=== PATIENT | female | born 1945 | race Caucasian/White ===

== ENCOUNTER → 2023-12-16 13:51 | Outpatient (REF) | payer MEDICARE, SELFPAY ==
[2023-12-16 10:13] LABS: % Basophils 1.6 % (0-2); % Eosinophils 1.9 % (0-6); % Immature Granulocytes 0.6 % (0-0.5); % Lymphocytes 38.6 % (20.5-51.1); % Monocytes 7.7 % (1.7-9.3); % Neutrophils 49.6 % (42.2-75.2); Absolute Basophils 0.1 10^3/uL (0-0.2); Absolute Eosinophils 0.1 10^3/uL (0-0.7); Absolute Lymphocytes 1.2 10^3/uL (1.2-3.4); Absolute Monocytes 0.2 10^3/uL (0.1-0.6); Absolute Neutrophils 1.5 10^3/uL (1.4-6.5); Hematocrit 34.2 % (37.0-47.0); Hemoglobin 11.9 g/dL (12.0-16.0); Mean Corp Hgb Conc. 34.8 g/dL (33.0-37.0); Mean Corpuscular Hgb 33.2 pg (27.0-31.0); Mean Corpuscular Volume 95.5 fL (81.0-99.0); Mean Platelet Volume 9.5 fL (7.4-10.4); Nucleated Red Blood Cells % 0 %; Platelet Count 287 10^3/uL (130-400); Red Blood Cell Count 3.58 10^6/uL (4.20-5.40); Red Cell Dist. Width 13.3 % (11.5-14.5); White Blood Cell Count 3.1 10^3/uL (4.8-10.8)
== END ==
LOC: OIDL 13:51
PROVIDERS: ATTENDING PHYSICIAN Internal Medicine Hematology & Oncology
DX: C50.412 Malignant neoplasm of upper-outer quadrant of left female breast (principal)
CPT/HCPCS: 85025

== ENCOUNTER 2023-12-16 14:25 | Emergency (ER) | payer MEDICARE, SELFPAY ==
[2023-12-16] VITALS (11 sets, daily range): BP systolic 158–240; BP diastolic 68–99; BMI 30.3
[2023-12-16 15:08] LABS: % Basophils 0.9 % (0-2); % Eosinophils 0.9 % (0-6); % Immature Granulocytes 0.3 % (0-0.5); % Lymphocytes 16.9 % (20.5-51.1); % Monocytes 3.7 % (1.7-9.3); % Neutrophils 77.3 % (42.2-75.2); Absolute Lymphocytes 0.6 10^3/uL (1.2-3.4); Absolute Monocytes 0.1 10^3/uL (0.1-0.6); Absolute Neutrophils 2.5 10^3/uL (1.4-6.5); Hematocrit 36.3 % (37.0-47.0); Hemoglobin 12.4 g/dL (12.0-16.0); Mean Corp Hgb Conc. 34.2 g/dL (33.0-37.0); Mean Corpuscular Hgb 33.4 pg (27.0-31.0); Mean Corpuscular Volume 97.8 fL (81.0-99.0); Mean Platelet Volume 9.5 fL (7.4-10.4); Nucleated Red Blood Cells % 0 %; Platelet Count 236 10^3/uL (130-400); Red Blood Cell Count 3.71 10^6/uL (4.20-5.40); Red Cell Dist. Width 13.3 % (11.5-14.5); White Blood Cell Count 3.3 10^3/uL (4.8-10.8)
[2023-12-16 15:28] LABS: ALT (SGPT) 15 U/L (0-35); AST (SGOT) 26 U/L (14-36); Albumin 3.8 g/dl (3.5-5.0); Alkaline Phosphatase 90 U/L (38-126); Blood Urea Nitrogen 17 mg/dl (7-17); Calcium 9.4 mg/dl (8.4-10.2); Carbon Dioxide 26 mmol/L (22-30); Chloride 103 mmol/L (98-107); Glucose 100 mg/dl (70-99); Potassium 4.3 mmol/L (3.5-5.1); Sodium 134 mmol/L (135-145); Total Bilirubin 0.6 mg/dl (0.2-1.3); Total Protein 6.5 g/dl (6.3-8.2); eGFR > 60.00
--- NOTE | 2023-12-16 17:51 | ED.GENMED ---
History of Present Illness
General
Chief Complaint: Blood Pressure Problem
Source: patient
Exam Limitations: none
Time Seen by Provider: 12/16/23 16:57
Nursing documentation reviewed up to this point in time: agreed with
Travel History
Have you had any contact with someone who has COVID-19?: No
Do you have any symptoms of coronavirus? Fever > 100 degrees, chills, cough, shortness of breath, sore throat, loss of taste or smell, muscle aches, or headache?: No
History of Present Illness
History of Present Illness:
78-year-old female presents to the ER for evaluation. Patient is currently getting treated for lymphoma and was getting a treatment of immune therapy when they found that her blood pressure was high and she had a headache. She has had off-and-on
headaches for the past 1 week. She reports pain is in the left side of her head and left face area. She denies any visual disturbances. Denies any numbness Paramjit weakness in upper or lower extremities. Her blood pressure was very high prior to
arrival while getting her immune therapy which is why they sent her here to the ER. She denies any nausea vomiting blurred vision chest pain shortness of breath. She was given Tylenol at that time.
She is on lisinopril and HCTZ but only takes HCTZ when her legs swell (PRN) she only took lisinopril today.
Review of Systems
Review of Systems
Allergies reviewed?: Yes
All Other Systems: ROS reviewed and negative except as documented in HPI and ROS
Constitutional: Reports no symptoms; Denies fever, fatigue or chills
EENT: Reports no symptoms
Respiratory: Reports no symptoms
Cardiac: Reports no symptoms
ABD/GI: Reports no symptoms; Denies nausea or vomiting
Musculoskeletal: Reports no symptoms
Skin: Reports no symptoms
Neurological: Reports headache
Hematologic/Lymphatic: Reports no symptoms
Psychiatric: Reports no symptoms
Phy Exam
General Physical Exam
General Presentation: no apparent distress
General age: appears stated age
General Skin: warm and dry
General Habitus: elderly
General Mental: alert
General Hydration: appears well hydrated
ENT Exam
ENT Exam: EOMI and other (Left-sided neck mass+ no difficulty swallowing)
Eye Exam
Eye Exam: PERRL and EOMI
Eye Exam General: PERRL: bilateral and EOM intact: bilateral
Pupil Exam: Bilateral: round and reactive
Cardiovascular Exam
Cardiovascular Exam: regular rate/rhythm, no murmur and normal peripheral pulses
Pulmonary Exam
Pulmonary Exam: lungs clear and no respiratory distress
Neurological Exam
Neurological Exam: alert and oriented x3
Musculoskeletal Exam
Musculoskeletal Exam: full ROM and other (Patient with left-sided neck swelling hard palpable mass to left lateral neck left trapezius area; nontender to left temporal artery)
Skin Exam
Skin Exam: normal color and warm/dry
Psychiatric Exam
Psychiatric Exam: normal mood/affect
Course
Orders/Labs/Results
Orders:
Orders
12/16/23 14:43
Electrocardiogram (*1) Urgent
Reason for Study: Hypertension, Benign
EKG- Treatment ONCE
12/16/23 14:56
Complete Blood Count/With Diff Urgent
Comprehensive Metabolic Panel Urgent
12/16/23 18:02
CT Head W/o Iv Contrast Urgent
Comment:
Reason For Exam: headache
12/16/23 19:10
HydrALAZINE [Apresoline] 10 mg IV NOW STA
12/16/23 20:36
Acetaminophen [Tylenol] 650 mg .ROUTE .STK-MED ONE
12/16/23 20:39
Acetaminophen [Tylenol] 650 mg PO NOW STA
12/16/23 21:10
Amlodipine [Norvasc] 5 mg PO NOW STA
12/16/23 21:32
Ketorolac [Toradol] 15 mg IV NOW STA
Abnormal Lab Results
12/16/23
14:56
WBC 3.3 L 10^3/uL
(4.8-10.8)
RBC 3.71 L 10^6/uL
(4.20-5.40)
Hct 36.3 L %
(37.0-47.0)
MCH 33.4 H pg
(27.0-31.0)
Absolute Lymphs (auto) 0.6 L 10^3/uL
(1.2-3.4)
Neutrophils % 77.3 H %
(42.2-75.2)
Lymphocytes % 16.9 L %
(20.5-51.1)
Sodium 134 L mmol/L
(135-145)
Glucose 100 H mg/dl
(70-99)
12/16/23 14:56
12/16/23 14:56
Vital Signs
Initial and Last Documented VS:
Initial Vital Signs
Temp Pulse Resp BP Pulse Ox
98.0 F 76 16 229/99 98
12/16/23 14:34 12/16/23 14:34 12/16/23 14:34 12/16/23 14:34 12/16/23 14:34
Last Documented Vital Signs
Temp Pulse Resp BP Pulse Ox
98.0 F 79 18 183/76 100
12/16/23 14:34 12/16/23 21:20 12/16/23 20:54 12/16/23 21:20 12/16/23 20:54
Commutator Repairer consulted with Physician
Commutator Repairer consulted with physician?: Yes
Name of Physician Consulted: madeline
MDM/Problems Addressed
Differential Diagnosis Includes:
Not limited to headache intracranial hemorrhage
MDM/Problems Addressed:
Patient is a 78-year-old female who presented to the ER complaining of headache and blood pressure. Patient developed a headache while she was getting her immunotherapy for lymphoma at [facility]. Her blood pressure apparently was high
and she was sent here to the ER she presents awake alert no acute distress. She has had a headache off and on for the past several days. She denies any associated visual disturbance denies any upper or lower extremity numbness Tingling / weakness.
On exam she has no focal deficits. She is nontender over her temporal region.
she is on lisinopril daily which she did take but HCTZ is as needed for leg swelling and she did not take this. She presents awake alert no acute distress with a normal neurologic exam. CT negative. Patient was given hydralazine for blood
pressure, heart rate in the 70s.
2056: Blood pressure 199/68 heart rate 80s. Patient reports headache is coming back she was given Tylenol. Case discussed ED physician will have to plan to discharge patient on Norvasc in addition to her lisinopril. She only takes HCTZ very
sparingly and will have her follow-up with her family doctor for further instructions on high HCTZ use. Will give first dose of Norvasc here.
2132 Will give a dose of low-dose Toradol for headache
2324:Pt feels better wants to go home. appears comfortable BP much better .as discussed we will send amlodipine to patient's pharmacy. Discussed close outpatient follow-up with family doctor/oncology for further evaluation of symptoms.
*Radiology
Radiology exam reviewed: radiology read reviewed
*Pulse Oximetry
Patient hypoxic: no
*Critical Care Note
Total Time (30-74mins, 75-104mins- exclusive of procedures): Not Applicable
ED Attending Note
-
Portions of this chart may have been created with voice recognition software.� Occasional wrong word or��sound alike� substitutions may have occurred due to the inherent limitations of voice recognition software.
Discharge Plan
Departure
Patient Disposition: Home (Routine Discharge)
Date of Disposition: 12/16/23
Time of Disposition: 23:24
Patient with high blood pressure during this ER visit?: Yes
Condition: Fair
Covid-19: Not Applicable
Discharge Problem:
Headache, Elevated blood pressure reading
Instructions: High Blood Pressure (DC), Headache, Adult ED, BLOOD PRESSURE
Prescriptions:
New
amlodipine 5 mg tablet
5 mg PO DAILY Qty: 30 0RF
No Action
lisinopril 20 MG tablet
20 mg PO DAILY
Patient Comments:
in am
hydrochlorothiazide 25 MG tablet
25 mg PO PRN PRN (Reason: ankle swelling)
Patient Comments:
in am
letrozole 2.5 mg Tablet
2.5 mg PO DAILY
Centrum Silver Tablet
1 tab PO DAILY
biotin 2,500 mcg Capsule
2,500 mcg PO DAILY
Ibrance 125 mg Capsule
125 mg PO QPM
prednisolone sodium phosphate [prednisolone sodium phosphate] 15 mg/5 mL (3 mg/mL) solution
10 ml PO DAILY 3 Days Qty: 30 0RF
Rx Instructions:
Take Prelone starting tomorrow, once daily x 3 days
ondansetron [ondansetron] 4 mg tablet,disintegrating
4 mg PO Q8H PRN (Reason: Nausea and Vomiting) 10 Days Qty: 15 0RF
hydrocodone-acetaminophen [hydrocodone-acetaminophen] 7.5-325 mg/15 mL solution
15 ml PO Q4HPRN PRN (Reason: Pain) Qty: 475 0RF
Referrals:
Albert Schuster DO [Family Provider] -
Activity Restrictions/Additional Instructions:
As discussed continue your lisinopril however start new prescription, amlodipine which was sent to your pharmacy. Take as directed.
You may take Tylenol for discomfort.
Follow-up with your oncologist and family doctor in the next several days for reevaluation of your symptoms. Return if any worsening of symptoms
Interventions
Interventions:
*Risk Screen - Suicide Last Done: 12/16/23 17:12
*General Assessment Last Done: 12/16/23 17:12
*Neglect/Abuse Screening Last Done: 12/16/23 17:12
*ED COVID-19 Vaccine History Last Done: 12/16/23 14:34
ED- Cardiac Assessment Last Done: 12/16/23 17:12
ED- Neurological Assessment Last Done: 12/16/23 17:12
ED- Pulmonary Assessment Last Done: 12/16/23 17:12
Discharge Date and Time
Print Language: KOREAN
[2023-12-16] MEDS: APRESOLINE 10 MG IV (19:58)
[2023-12-16] MEDS: TYLENOL 650 MG PO (20:39)
[2023-12-16] MEDS: NORVASC 5 MG PO (21:20)
[2023-12-16] MEDS: TORADOL 15 MG IV (21:47)
== END 2023-12-16 23:43 | disposition home or self-care (01) ==
LOC: EMR 14:25
PROVIDERS: EMERGENCY PHYSICIAN Student in an Organized Health Care Education/Training Program; FAMILY PHYSICIAN Internal Medicine
DX: R51.9 Headache, unspecified (principal); R03.0 Elevated blood-pressure reading, without diagnosis of hypertension
CPT/HCPCS: 70450; 80053; 85025; 93005; 96374; 96375; 99285

== ENCOUNTER → 2023-12-23 12:13 | Outpatient (REF) | payer MEDICARE, SELFPAY ==
[2023-12-23 10:31] LABS: % Basophils 1.2 % (0-2); % Eosinophils 1.5 % (0-6); % Immature Granulocytes 0.6 % (0-0.5); % Lymphocytes 31.5 % (20.5-51.1); % Monocytes 6.3 % (1.7-9.3); % Neutrophils 58.9 % (42.2-75.2); Absolute Eosinophils 0.1 10^3/uL (0-0.7); Absolute Lymphocytes 1.1 10^3/uL (1.2-3.4); Absolute Monocytes 0.2 10^3/uL (0.1-0.6); Hematocrit 30.3 % (37.0-47.0); Hemoglobin 10.3 g/dL (12.0-16.0); Mean Corpuscular Hgb 33.2 pg (27.0-31.0); Mean Corpuscular Volume 97.7 fL (81.0-99.0); Mean Platelet Volume 10.1 fL (7.4-10.4); Nucleated Red Blood Cells % 0 %; Platelet Count 175 10^3/uL (130-400); Red Cell Dist. Width 13.7 % (11.5-14.5); White Blood Cell Count 3.4 10^3/uL (4.8-10.8)
== END ==
LOC: OIDL 12:13
PROVIDERS: ATTENDING PHYSICIAN Nurse Practitioner Primary Care
DX: C50.412 Malignant neoplasm of upper-outer quadrant of left female breast (principal)
CPT/HCPCS: 85025

== ENCOUNTER → 2023-12-30 09:43 | Outpatient (REF) | payer MEDICARE, SELFPAY ==
[2023-12-30 10:21] LABS: % Basophils 1.3 % (0-2); % Eosinophils 1.3 % (0-6); % Immature Granulocytes 0.3 % (0-0.5); % Lymphocytes 37.9 % (20.5-51.1); % Monocytes 12.6 % (1.7-9.3); % Neutrophils 46.6 % (42.2-75.2); Absolute Lymphocytes 1.2 10^3/uL (1.2-3.4); Absolute Monocytes 0.4 10^3/uL (0.1-0.6); Absolute Neutrophils 1.4 10^3/uL (1.4-6.5); Mean Corp Hgb Conc. 33.3 g/dL (33.0-37.0); Mean Corpuscular Hgb 33.1 pg (27.0-31.0); Mean Corpuscular Volume 99.3 fL (81.0-99.0); Mean Platelet Volume 9.6 fL (7.4-10.4); Nucleated Red Blood Cells % 0 %; Platelet Count 313 10^3/uL (130-400); Red Blood Cell Count 3.02 10^6/uL (4.20-5.40); Red Cell Dist. Width 13.5 % (11.5-14.5); White Blood Cell Count 3.1 10^3/uL (4.8-10.8)
== END ==
LOC: OIDL 09:43
PROVIDERS: ATTENDING PHYSICIAN Nurse Practitioner Primary Care
DX: C50.412 Malignant neoplasm of upper-outer quadrant of left female breast (principal); K14.8 Other diseases of tongue; C82.11 Follicular lymphoma grade II, lymph nodes of head, face, and neck
CPT/HCPCS: 85025

== ENCOUNTER → 2024-01-10 10:41 | Outpatient (REF) | payer MEDICARE, SELFPAY ==
[2024-01-10 10:15] LABS: % Basophils 2.1 % (0-2); % Eosinophils 2.5 % (0-6); % Immature Granulocytes 0.4 % (0-0.5); % Lymphocytes 41.3 % (20.5-51.1); % Monocytes 8.5 % (1.7-9.3); % Neutrophils 45.2 % (42.2-75.2); Absolute Basophils 0.1 10^3/uL (0-0.2); Absolute Eosinophils 0.1 10^3/uL (0-0.7); Absolute Lymphocytes 1.2 10^3/uL (1.2-3.4); Absolute Monocytes 0.2 10^3/uL (0.1-0.6); Absolute Neutrophils 1.3 10^3/uL (1.4-6.5); Hematocrit 32.8 % (37.0-47.0); Mean Corp Hgb Conc. 33.5 g/dL (33.0-37.0); Mean Corpuscular Hgb 33.5 pg (27.0-31.0); Mean Platelet Volume 9.5 fL (7.4-10.4); Nucleated Red Blood Cells % 0 %; Platelet Count 316 10^3/uL (130-400); Red Blood Cell Count 3.28 10^6/uL (4.20-5.40); Red Cell Dist. Width 13.8 % (11.5-14.5); White Blood Cell Count 2.8 10^3/uL (4.8-10.8)
[2024-01-10 10:53] LABS: ALT (SGPT) 19 U/L (0-35); AST (SGOT) 26 U/L (14-36); Albumin 3.5 g/dl (3.5-5.0); Alkaline Phosphatase 101 U/L (38-126); Blood Urea Nitrogen 23 mg/dl (7-17); Calcium 9.5 mg/dl (8.4-10.2); Carbon Dioxide 28 mmol/L (22-30); Chloride 102 mmol/L (98-107); Glucose 86 mg/dl (70-99); Potassium 4.8 mmol/L (3.5-5.1); Sodium 135 mmol/L (135-145); Total Bilirubin 0.6 mg/dl (0.2-1.3); Total Protein 6.4 g/dl (6.3-8.2); eGFR 57.31
== END ==
LOC: OIDL 10:41
PROVIDERS: ATTENDING PHYSICIAN Internal Medicine Hematology & Oncology
DX: C50.412 Malignant neoplasm of upper-outer quadrant of left female breast (principal)
CPT/HCPCS: 80053; 85025

== ENCOUNTER → 2024-02-25 09:52 | Outpatient (REF) | payer MEDICARE, SELFPAY | LOC: HWRAD 09:52 | PROVIDERS: ATTENDING PHYSICIAN Internal Medicine Hematology & Oncology; FAMILY PHYSICIAN Internal Medicine | DX: K14.8 Other diseases of tongue (principal); C82.11 Follicular lymphoma grade II, lymph nodes of head, face, and neck | CPT/HCPCS: 76536 ==

== ENCOUNTER → 2024-03-05 11:52 | Outpatient (REF) | payer MEDICARE, SELFPAY ==
[2024-03-05 12:30] VITALS: BP 134/67; BP_SYST 61
[2024-03-05 13:43] VITALS: BP 181/65
== END ==
LOC: RADI 11:52
PROVIDERS: ATTENDING PHYSICIAN Internal Medicine Hematology & Oncology; FAMILY PHYSICIAN Internal Medicine
DX: C83.31 Diffuse large B-cell lymphoma, lymph nodes of head, face, and neck (principal)
CPT/HCPCS: 88305; 20206; 76942; 88333; 88341; 88342; 88365

== ENCOUNTER → 2024-04-28 16:42 | Outpatient (REF) | payer MEDICARE, SELFPAY ==
[2024-04-28 16:52] LABS: ALT (SGPT) 20 U/L (0-35); AST (SGOT) 24 U/L (14-36); Alkaline Phosphatase 100 U/L (38-126); Blood Urea Nitrogen 26 mg/dl (7-17); Calcium 9.3 mg/dl (8.4-10.2); Carbon Dioxide 25 mmol/L (22-30); Chloride 102 mmol/L (98-107); Glucose 81 mg/dl (70-99); Potassium 4.3 mmol/L (3.5-5.1); Sodium 139 mmol/L (135-145); Total Bilirubin 0.6 mg/dl (0.2-1.3); Total Protein 6.5 g/dl (6.3-8.2); eGFR 51.11
[2024-04-28 16:53] LABS: Uric Acid 5.7 mg/dl (2.5-6.2)
[2024-04-28 17:05] LABS: % Basophils 1.8 % (0-2); % Eosinophils 1.5 % (0-6); % Immature Granulocytes 0.3 % (0-0.5); % Lymphocytes 32.7 % (20.5-51.1); % Neutrophils 53.7 % (42.2-75.2); Absolute Basophils 0.1 10^3/uL (0-0.2); Absolute Eosinophils 0.1 10^3/uL (0-0.7); Absolute Lymphocytes 1.1 10^3/uL (1.2-3.4); Absolute Monocytes 0.3 10^3/uL (0.1-0.6); Absolute Neutrophils 1.8 10^3/uL (1.4-6.5); Hematocrit 32.8 % (37.0-47.0); Hemoglobin 11.7 g/dL (12.0-16.0); Mean Corp Hgb Conc. 35.7 g/dL (33.0-37.0); Mean Corpuscular Hgb 34.4 pg (27.0-31.0); Mean Corpuscular Volume 96.5 fL (81.0-99.0); Mean Platelet Volume 9.6 fL (7.4-10.4); Nucleated Red Blood Cells % 0 %; Platelet Count 292 10^3/uL (130-400); Red Cell Dist. Width 13.6 % (11.5-14.5); White Blood Cell Count 3.3 10^3/uL (4.8-10.8)
== END ==
LOC: OIDL 16:42
PROVIDERS: ATTENDING PHYSICIAN Internal Medicine Hematology & Oncology
DX: C50.412 Malignant neoplasm of upper-outer quadrant of left female breast (principal)
CPT/HCPCS: 80053; 84550; 85025

== ENCOUNTER → 2024-05-04 09:43 | Outpatient (REF) | payer MEDICARE, SELFPAY ==
[2024-05-04] VITALS (8 sets, daily range): BP systolic 47–189; BP diastolic 52–77
[2024-05-04] MEDS: ANCEF 10 IV (11:04)
== END ==
LOC: RADI 09:43
PROVIDERS: ATTENDING PHYSICIAN Internal Medicine Hematology & Oncology; FAMILY PHYSICIAN Internal Medicine; OTHER PHYSICIAN Internal Medicine Infectious Disease; REFERRING PHYSICIAN Oral & Maxillofacial Surgery
DX: Z45.2 Encounter for adjustment and management of vascular access device (principal); C50.412 Malignant neoplasm of upper-outer quadrant of left female breast; C82.11 Follicular lymphoma grade II, lymph nodes of head, face, and neck
CPT/HCPCS: 36561; 76937; 77001; 93306; 93356; 99152; 99153; C1788

== ENCOUNTER 2025-06-30 21:38 | Inpatient (IN) | payer MEDICARE, SELFPAY ==
[2025-06-30] VITALS (10 sets, daily range): BP systolic 144–172; BP diastolic 68–97; BMI 27.1; BMI 25.9
[2025-06-30] MEDS: OFIRMEV 100 IV (16:42)
[2025-06-30] MEDS: DILAUDID 1 MG IV (16:42)
[2025-06-30 16:53] LABS: Hematocrit 34.3 % (37.0-47.0); Hemoglobin 11.5 g/dL (12.0-16.0); Mean Corp Hgb Conc. 33.5 g/dL (33.0-37.0); Mean Corpuscular Volume 83.3 fL (81.0-99.0); Nucleated Red Blood Cells % 0 %; Platelet Count 331 10^3/uL (130-400); Red Cell Dist. Width 17.9 % (11.5-14.5)
--- NOTE | 2025-06-30 17:05 | ED.GENMED ---
History of Present Illness
<Hung Carlson, DO - Last Filed: 06/30/25 17:06>
General
Chief Complaint: Facial Problem
Time Seen by Provider: 06/30/25 16:15
<Rizwan Modi PA-C - Last Filed: 06/30/25 20:14>
History of Present Illness
History of Present Illness:
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 She has
previously undergone chemo and radiation therapy and per documentation through [facility] does not appear to be an immediate candidate for any other therapies at this time. She was seen by palliative care yesterday for pain management purposes.
Developed fever and profound weakness today. Also notes increased drainage from the intraoral aspect of her lesion. She is unable to provide significant history due to difficulty with speaking secondary to her large mass.
Review of Systems
<Rizwan Modi PA-C - Last Filed: 06/30/25 20:14>
Review of Systems
Allergies reviewed?: Yes
All Other Systems: ROS reviewed and negative except as documented in HPI and ROS
Phy Exam
<Rizwan Modi PA-C - Last Filed: 06/30/25 20:14>
Physical Exam
Physical Exam:
GEN: Well appearing, NAD, WDWN
HEENT: Profound mass to the left jaw and neck with significant erythema and skin breakdown, purulence noted exuding from the left buccal mucosa within the mouth, massive adenopathy noted to the left anterior cervical chain. There is a mass
protruding from the left subclavicular soft tissue
Cardiac: Tachycardic, regular
Lung: No respiratory distress, no tachypnea, lungs clear to auscultation
MSK: No gross deformity or injuries
Skin: Good color, no pallor or jaundice, no rashes
Neuro: AO x3, moves all extremities freely
Psych: Calm, cooperative
Sepsis
<Hung Carlson, - Last Filed: 06/30/25 17:06>
Sepsis Screen
Sepsis Screen: Possible Sepsis
Date: 06/30/25
Time: 17:05
<Rizwan Modi PA-C - Last Filed: 06/30/25 20:14>
Sepsis Screening
Sepsis Assessment: Sepsis
Sepsis Screen
Sepsis Screen: Sepsis
Date: 06/30/25
Time: 20:13
Course
<Hung Carlson, DO - Last Filed: 06/30/25 17:06>
Orders/Labs/Results
Orders:
Orders
06/30/25 16:27
Acetaminophen 1000MG/100Ml [Ofirmev] 1,000 mg in 100 ml IV ONCE
Acetaminophen IV Indication:: ED Narcotic History-ONCE
HYDROmorphone [Dilaudid] 1 mg IV NOW STA
06/30/25 16:28
COVID-19 Antigen Urgent
Source: Nasal Swab
Complete Blood Count/With Diff Urgent
Comprehensive Metabolic Panel Urgent
Lactic Acid Q4H
Comment: ON ICE, CANCEL 2ND ORDER IF FIRST LACTIC ACID LEVEL <2
Blood Culture Q20M
CORKY Source: Blood/Venous
Specimen Description:
Comment: Urgent from separate sites. If patient screens positive for possible sepsis
Blood Culture Q20M
CORKY Source: Blood/Venous
Specimen Description:
Comment: Urgent from separate sites. If patient screens positive for possible sepsis
Influenza A+B Rapid Molecular Urgent
CORKY Source: Nasal Swab
Specimen Description:
06/30/25 17:45
CT Neck With Iv Contrast Urgent
Comment: received IV contrast 01/2023, pt unaware of any rxn
Reason For Exam: mass, fever
Piperacillin/Tazo 3.375 Gram [Zosyn] 3.375 gram in 50 ml IV NOW
06/30/25 17:57
Dexamethasone Sod Phosphate [Decadron] 10 mg IV NOW STA
06/30/25 18:39
Diphenhydramine [Benadryl] 12.5 mg IV NOW STA
06/30/25 19:11
Urinalysis Reflex To Culture Urgent
06/30/25 19:28
Lactic Acid Q4H
Comment: ON ICE, CANCEL 2ND ORDER IF FIRST LACTIC ACID LEVEL <2
Abnormal Lab Results
06/30/25
16:28
WBC 13.1 H 10^3/uL
(4.8-10.8)
RBC 4.12 L 10^6/uL
(4.20-5.40)
Hgb 11.5 L g/dL
(12.0-16.0)
Hct 34.3 L %
(37.0-47.0)
RDW 17.9 H %
(11.5-14.5)
Abs Immat Gran (auto) 0.1 H 10^3/uL
(0-0.05)
Absolute Neuts (auto) 11.0 H 10^3/uL
(1.4-6.5)
Absolute Lymphs (auto) 0.7 L 10^3/uL
(1.2-3.4)
Absolute Monos (auto) 1.3 H 10^3/uL
(0.1-0.6)
Immature Gran % 0.8 H %
(0-0.5)
Neutrophils % 84.0 H %
(42.2-75.2)
Lymphocytes % 5.1 L %
(20.5-51.1)
Monocytes % 10.0 H %
(1.7-9.3)
Sodium 131 L mmol/L
(135-145)
Chloride 91 L mmol/L
(98-107)
Carbon Dioxide 38 H mmol/L
(22-30)
Glucose 109 H mg/dl
(70-99)
AST 39 H U/L
(14-36)
Total Protein 5.7 L g/dl
(6.3-8.2)
06/30/25 16:28
06/30/25 16:28
Vital Signs
Initial and Last Documented VS:
Initial Vital Signs
Temp Pulse Resp BP Pulse Ox
102.2 F H 108 20 147/97 96
06/30/25 15:35 06/30/25 15:35 06/30/25 15:35 06/30/25 15:35 06/30/25 15:35
Last Documented Vital Signs
Temp Pulse Resp BP Pulse Ox
100.2 F 73 17 157/73 97
06/30/25 17:57 06/30/25 19:30 06/30/25 19:30 06/30/25 19:00 06/30/25 19:30
<Rizwan Modi PA-C - Last Filed: 06/30/25 20:14>
Orders/Labs/Results
Orders:
Orders
06/30/25 16:27
Acetaminophen 1000MG/100Ml [Ofirmev] 1,000 mg in 100 ml IV ONCE
Acetaminophen IV Indication:: ED Narcotic History-ONCE
HYDROmorphone [Dilaudid] 1 mg IV NOW STA
06/30/25 16:28
COVID-19 Antigen Urgent
Source: Nasal Swab
Complete Blood Count/With Diff Urgent
Comprehensive Metabolic Panel Urgent
Lactic Acid Q4H
Comment: ON ICE, CANCEL 2ND ORDER IF FIRST LACTIC ACID LEVEL <2
Blood Culture Q20M
CORKY Source: Blood/Venous
Specimen Description:
Comment: Urgent from separate sites. If patient screens positive for possible sepsis
Blood Culture Q20M
CORKY Source: Blood/Venous
Specimen Description:
Comment: Urgent from separate sites. If patient screens positive for possible sepsis
Influenza A+B Rapid Molecular Urgent
CORKY Source: Nasal Swab
Specimen Description:
06/30/25 17:45
CT Neck With Iv Contrast Urgent
Comment: received IV contrast 01/2023, pt unaware of any rxn
Reason For Exam: mass, fever
Piperacillin/Tazo 3.375 Gram [Zosyn] 3.375 gram in 50 ml IV NOW
06/30/25 17:57
Dexamethasone Sod Phosphate [Decadron] 10 mg IV NOW STA
06/30/25 18:39
Diphenhydramine [Benadryl] 12.5 mg IV NOW STA
06/30/25 19:11
Urinalysis Reflex To Culture Urgent
06/30/25 19:28
Lactic Acid Q4H
Comment: ON ICE, CANCEL 2ND ORDER IF FIRST LACTIC ACID LEVEL <2
Abnormal Lab Results
06/30/25
16:28
WBC 13.1 H 10^3/uL
(4.8-10.8)
RBC 4.12 L 10^6/uL
(4.20-5.40)
Hgb 11.5 L g/dL
(12.0-16.0)
Hct 34.3 L %
(37.0-47.0)
RDW 17.9 H %
(11.5-14.5)
Abs Immat Gran (auto) 0.1 H 10^3/uL
(0-0.05)
Absolute Neuts (auto) 11.0 H 10^3/uL
(1.4-6.5)
Absolute Lymphs (auto) 0.7 L 10^3/uL
(1.2-3.4)
Absolute Monos (auto) 1.3 H 10^3/uL
(0.1-0.6)
Immature Gran % 0.8 H %
(0-0.5)
Neutrophils % 84.0 H %
(42.2-75.2)
Lymphocytes % 5.1 L %
(20.5-51.1)
Monocytes % 10.0 H %
(1.7-9.3)
Sodium 131 L mmol/L
(135-145)
Chloride 91 L mmol/L
(98-107)
Carbon Dioxide 38 H mmol/L
(22-30)
Glucose 109 H mg/dl
(70-99)
AST 39 H U/L
(14-36)
Total Protein 5.7 L g/dl
(6.3-8.2)
06/30/25 16:28
06/30/25 16:28
Vital Signs
Initial and Last Documented VS:
Initial Vital Signs
Temp Pulse Resp BP Pulse Ox
102.2 F H 108 20 147/97 96
06/30/25 15:35 06/30/25 15:35 06/30/25 15:35 06/30/25 15:35 06/30/25 15:35
Last Documented Vital Signs
Temp Pulse Resp BP Pulse Ox
100.2 F 73 17 157/73 97
06/30/25 17:57 06/30/25 19:30 06/30/25 19:30 06/30/25 19:00 06/30/25 19:30
<Rizwan Modi PA-C - Last Filed: 06/30/25 20:14>
MDM/Problems Addressed
MDM/Problems Addressed:
Given the clear acute infection associated with the necrotic appearing wounds will start IV Amix and steroids however this patient would likely benefit from inpatient hospice consultation given the advanced disease that she has. At this time she is
not willing to decline all further care and would like to be make it to the holidays thus we will start her on treatment, will admit for further management given the severe edema associated with the cellulitis as well as fever
<Hung Carlson DO - Last Filed: 06/30/25 17:06>
*Pulse Oximetry
SaO2: 95
Nasal Cannula flow liters per minute: 4
Oxygen Mode of Delivery: Room air
<Rizwan Modi PA-C - Last Filed: 06/30/25 20:14>
*Pulse Oximetry
Patient hypoxic: no
*Critical Care Note
Total Time (30-74mins, 75-104mins- exclusive of procedures): Not Applicable
<Rizwan Modi PA-C - Last Filed: 06/30/25 20:14>
Update Note
Update Note:
Outpatient labs through [facility] chart reviewed, 2 weeks ago markedly thrombocytopenic at 73, white blood cells historically normal including 2 weeks ago
ED Attending Note
<Hung Carlson DO - Last Filed: 06/30/25 17:06>
ED Attending Note
Patient seen and examined by attending physician: Yes
I performed the substantive portion of visit, reviewed & personally made and approve the management plan that is documented in note by myself or MEHNAZ.: Yes
ED Attending Note:
I have seen and evaluated the patient with a [id number] encounter. I have spoken to the advance practicer provider and involved in the medical history, the physical exam, medical decision making.
Evaluation and management service: agree unless noted differently below.
Results interpretation: agree unless noted differently below.
Focused HPI: 79-year-old female presenting with family for evaluation of worsening swelling to her left jaw. She was recently diagnosed with B-cell lymphoma. She is followed at [facility] and they discussed recent follow-up with ENT indicating no
further management is expected. Family bedside very upset knowing that she may soon. She is a DNR and currently on palliative care
Physical exam: Large necrotic mass to left jaw
Medical Decision Making: Will start antibiotics with concern for underlying infection. Will obtain CT scan and ultimately admit for palliative and hospice evaluation and for pain control
-
Portions of this chart may have been created with voice recognition software.� Occasional wrong word or��sound alike� substitutions may have occurred due to the inherent limitations of voice recognition software.
Discharge Plan
Departure
Patient Disposition: Admit
Date of Disposition: 06/30/25
Time of Disposition: 20:13
Admit to: Med/Surg
Presentation/result/management discussed w/ accepting MD/DO: Hospitalist
Discharge Problem:
Cellulitis of face
Prescriptions:
No Action
lisinopril 20 MG tablet
20 mg PO DAILY
Patient Comments:
in am
hydrochlorothiazide 25 MG tablet
25 mg PO PRN PRN (Reason: ankle swelling)
Patient Comments:
in am
letrozole 2.5 mg Tablet
2.5 mg PO DAILY
Centrum Silver Tablet
1 tab PO DAILY
biotin 2,500 mcg Capsule
2,500 mcg PO DAILY
Ibrance 125 mg Capsule
125 mg PO QPM
amlodipine 5 mg tablet
5 mg PO DAILY Qty: 30 0RF
cholecalciferol (vitamin D3) [Vitamin D3] 25 mcg (1,000 unit) Tablet
25 mcg PO DAILY
Referrals:
Albert Schuster DO [Family Provider, Internal Medicine]
Interventions
Interventions:
*Risk Screen - Suicide Last Done: 06/30/25 15:35
*General Assessment Last Done: 06/30/25 15:35
*Neglect/Abuse Screening Last Done: 06/30/25 15:35
*ED- Fall Risk Assessment Last Done: 06/30/25 16:14
*ED COVID-19 Vaccine History Last Done: 06/30/25 20:07
*ED Influenza Vaccine History Last Done: 06/30/25 20:07
ED- Neurological Assessment Last Done: 06/30/25 16:14
ED-Skin Assessment Last Done: 06/30/25 16:16
Discharge Date and Time
Print Language: [email or web address]
[2025-06-30 17:10] LABS: ALT (SGPT) 24 U/L (0-35); AST (SGOT) 39 U/L (14-36); Albumin 3.5 g/dl (3.5-5.0); Alkaline Phosphatase 102 U/L (38-126); Blood Urea Nitrogen 17 mg/dl (7-17); Calcium 9.2 mg/dl (8.4-10.2); Chloride 91 mmol/L (98-107); Glucose 109 mg/dl (70-99); Potassium 4.0 mmol/L (3.5-5.1); Sodium 131 mmol/L (135-145); Total Protein 5.7 g/dl (6.3-8.2); eGFR > 60.00
[2025-06-30 17:43] LABS: COVID-19 Antigen Negative (Negative)
[2025-06-30] MEDS: ZOSYN 50 IV ×2 (17:47→23:22)
[2025-06-30 18:07] LABS: Carbon Dioxide 38 mmol/L (22-30)
[2025-06-30] MEDS: DECADRON 10 MG IV (18:07)
[2025-06-30] MEDS: BENADRYL 12.5 MG IV (19:18)
--- NOTE | 2025-06-30 20:18 | HPS.HSE ---
Addendum entered and electronically signed by Alfonso Blankenship MD 06/30/25 22:13:
This is an addendum to H&P written by Jamilah Alexander on 06/30/2025. �Patient seen and examined independently with [employer].
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
hypothyroidism, presenting with increased pain and swelling of the left jaw. Sees [facility] and not candidate for any other therapies. �She developed fever and profound weakness today. �Increased drainage from the intraoral aspect of the lesion.
Vital signs unremarkable apart from fever 102.4.
Labs show leukocytosis. �Stable chronic anemia of 11.5.
CT neck pending.
Patient with concern for infected necrotic B cell lymphoma of left jaw. �No further options as per [facility] as per family. �Blood cultures pending. �Zosyn. �Dexamethasone started to decrease inflammation. �Dilaudid for pain. �Patient and family
would like to pursue hospice. �Case management consulted.
Original Note:
Family Physician
-
Family Physician: Albert Schuster
Chief Complaint
-
increasing pain and swelling to the left jaw
History of Present Illness
Patient is a 79-year-old female with past medical history significant for hypertension, hyperlipidemia, anxiety/depression, hypothyroidism, GERD, metastatic breast cancer and diffuse large B-cell lymphoma who presented to [facility] for evaluation of
increasing pain and swelling to the left jaw. Patient with B-cell lymphoma of the head and neck as well as osteonecrosis of the jaw due to bisphosphonate therapy. Patient has undergone chemo and radiating therapies and currently no further treatment
is available for patient. Patient difficulty speaking has cousin/POA at bedside who assisted in HPI information. She reports that Palliative care saw patient yesterday and encouraged hospice services and patient was no quite ready. In reviewing
hospice vs. palliative care, their philosophy and services. Patient and family agreeable to comfort approach of care at hospital with treatment of infection and plan for hospice initiation.
Medical History
Past Medical History
Past Medical History: Reports Other
Additional Past Medical History:
hypertension
hyperlipidemia
anxiety/depression
hypothyroidism
GERD
metastatic breast cancer
diffuse large B-cell lymphoma
Past Surgical History: Reports None
Additional Past Surgical History:
Knee replacement(2011)
Right total hip arthroplasty
Social History
Tobacco: Former Smoker
Alcohol: Occasional
Living: Alone
Family History
Family History: Not pertinent
Allergies / Home Medications
Allergies reflects when Allergies were last updated in [facility].
Home Medications with original date entered in [facility]
Allergy/Medication List:
Allergies
Allergy/AdvReac Type Severity Reaction Status Date / Time
Iodinated Contrast Media Allergy Unknown Unknown Verified 06/30/25 15:41
oxycodone Allergy shaking, Verified 06/30/25 15:41
vomiting
Home Medications
lisinopril 20 mg tablet 20 mg PO DAILY Blood Pressure 08/15/11
acetaminophen 500 mg tablet (Tylenol Extra Strength) 1,000 mg PO BID@1200,2200 06/30/25
acetaminophen 500 mg tablet (Tylenol Extra Strength) 500 mg PO DAILY 06/30/25
acyclovir 400 mg tablet 400 mg PO BID 06/30/25
allopurinol 300 mg tablet 300 mg PO DAILY 06/30/25
amlodipine 5 mg tablet 5 mg PO DAILY Blood Pressure 06/30/25
gabapentin 300 mg capsule 300 mg PO BID@0800,1200 06/30/25
gabapentin 300 mg capsule 600 mg PO HS 06/30/25
prednisone 10 mg tablet 10 mg PO DAILY 06/30/25
sulfamethoxazole 200 mg-trimethoprim 40 mg/5 mL oral suspension 5 ml PO MOWEFR 06/30/25
tramadol 50 mg tablet 50 mg PO BID@0800,1200 06/30/25
tramadol 50 mg tablet 100 mg PO QPM 06/30/25
Review of Systems
-
History Source: Patient and Family
Constitutional: Reports Fever; Denies Chills
EENT: Reports Mouth Pain and Other (left jaw pain )
Respiratory: Denies Cough, Hemoptysis or Trouble Breathing
Cardiac: Denies Chest Pain, Diaphoresis or Palpitations
Abdomen/GI: Denies Abdominal Pain, Nausea, Vomiting or Diarrhea
: Denies Dysuria, Frequency or Urgency
Skin: Denies Rash
Neurological: Denies Dizzy, Headache, Weakness or Numbness
Physical Exam
Vital Signs
Vital Signs
Temp Pulse Resp BP Pulse Ox
100.2 F 73 17 157/73 97
06/30/25 17:57 06/30/25 19:30 06/30/25 19:30 06/30/25 19:00 06/30/25 19:30
Physical Exam
General: Well Developed, Well Nourished, Fever and Obese
HEENT: Other (Profound mass to the left jaw and neck with significant erythema and skin breakdown, purulence noted exuding from the left buccal mucosa within the mouth, massive adenopathy noted to the left anterior cervical chain. There is a mass
protruding from the left subclavicular soft tissue)
Respiratory: Clear, Rhonchi and Non Labored Respirations
Cardiac: Regular Rhythm and Tachycardia; No Murmur or Peripheral Edema
GI: Soft, Non Tender, Non Distended and Normal Bowel Sounds
Musculoskeletal: No Clubbing, No Cyanosis and No Edema
Skin: Warm and IV/Catheter Site
Neuro: Awake and AO x 3
Psych: Calm
Laboratory Results
-
06/30/25 16:28
06/30/25 16:28
Laboratory Results
Lactic Acid 0.8 mmol/L (0.7-2.0) 06/30/25 19:28
Total Bilirubin 0.7 mg/dl (0.2-1.3) 06/30/25 16:28
AST 39 U/L (14-36) H 06/30/25 16:28
ALT 24 U/L (0-35) 06/30/25 16:28
Alkaline Phosphatase 102 U/L (38-126) 06/30/25 16:28
Data Reviewed
-
Lab Data: Labs Reviewed by me (WBC 13.1, hgb 11.5, hct 34.3, neut 84.0, na 131)
Impression/Plan
-
IMPRESSION/PLAN:
#B-cell lymphoma of the head and neck as well as osteonecrosis of the jaw due to bisphosphonate therapy
increased pain and growth to left jaw within hours
WBC 13.1, hgb 11.5, hct 34.3, neut 84.0, na 131
Influenza: negative
Covid: neagtive
- Admit to med/surg for comfort measures
- Consult hospice team
- IV Zosyn
- IV dexamethasone
- continue gabapentin and tramadol
- add PRN for severe pain
#hypertension
- continue amlodipine and lisinopril
#hyperlipidemia
#anxiety/depression
#hypothyroidism
#GERD
#metastatic breast cancer
#diffuse large B-cell lymphoma
Code status: DNR
DVT prophylaxis: n/a
[2025-06-30 22:29] LABS: Urine Character Clear (Clear)
[2025-06-30 22:36] LABS: Urine Red Blood Cell 0-2 /HPF (0-2); Urine Squamous Cell >30 /LPF (Few); Urine White Cell 21-25 /HPF (0-5)
[2025-06-30] MEDS: NEURONTIN 600 MG PO (22:50)
[2025-06-30] MEDS: FLUSH (NSS) 2 FLUSH IV (23:23)
--- NOTE | 2025-07-01 03:10 | PTCARENOTE ---
Patient received by ED via stretcher. She ambulated to room with Ax1. Family and friend at bedside. they were oriented to room and surroundings. Suction with Yankauer setup for oral secretions. Left chest dressing changed. Patient does not
want right CW port accessed due to tilted positioning of port. Left jaw, neck and mouth edematous with scabbed tumor wound. Speech is garbled but able to make needs known. IV Abx per order. Patient denies pain. See nursing assessment for
further physical findings. Call meraz in reach.
[2025-07-01] MEDS: ZOSYN 50 IV ×4 (05:51→23:25)
[2025-07-01] MEDS: FLUSH (NSS) 2 FLUSH IV (05:52)
[2025-07-01 07:52] VITALS: BP 147/80
[2025-07-01] MEDS: ZYLOPRIM 300 MG PO (07:53)
[2025-07-01] MEDS: ZOVIRAX 400 MG PO ×2 (07:53→20:27)
[2025-07-01] MEDS: NEURONTIN 300 MG PO ×2 (07:53→12:29)
[2025-07-01] MEDS: NORVASC 5 MG PO (07:53)
[2025-07-01] MEDS: ZESTRIL 20 MG PO (07:54)
[2025-07-01] MEDS: ULTRAM 50 MG PO ×2 (07:55→12:29)
[2025-07-01] MEDS: DECADRON 4 MG IV ×2 (07:55→20:27)
--- NOTE | 2025-07-01 10:40 | CM ---
Addendum entered by Son Vyas 07/01/25 13:15:
Per medical liaison, pt preferred to return back home tomorrow and on Saturday pt will report to [facility]. Pt's cousin in communication with [facility].
CM spoke to [facility]ARHE[facility] Bustillo and requested pt's clinical with hospice order be faxed to [facility] [phone]. Per [place], they in contract with [facility] and they will make a referral.
D/C plan: home tomorrow with [facility] and pt will report to [facility] on Saturday. Pt's cousin will stay with the pt to help with ADL.
Original Note:
CM following re: discharge planning.
Reviewed pt's chart, met with pt.
Pt is an 79 year old female, admitted with primary dx of B-cell lymphoma of the head and neck as well as osteonecrosis of the jaw due to bisphosphonate therapy. Pt admitted for comfort measure. Hospice care consult noted. Pt is aware, expressed
worried feelings stating 'Am I dying?'. Emotional support offered and provided. Pt refereed to hospice.
Pt described herself as independent in all areas [employer]. No DME, VN or SNF history. Pt reports she has supportive cousin.
PCP: Albert Schuster
Pharmacy: [facility]
D/C plan: home with hospice care. medical liaison following.
CM will follow with discharge plan updates as hospitalization progresses
--- NOTE | 2025-07-01 13:01 | HOSPNOTE ---
Spoke with patient and family about hospice and the philosophy. The plan is CM will send updated documentation to [facility] in [place]. The plan is for patient to be discharged tomorrow to home patient is currently established with [facility]
caregivers will be in place and then patient will transition to [facility] early next week and be admitted onto hospice services at [facility] when patient arrives and will use their preferred hospice provider. Attending updated with plan and to also
discharge with oral antibiotics (liquid form). Family has my number to call if any further questions arise.
--- NOTE | 2025-07-01 14:06 | W.PN.HOSP.TC ---
Today's Communication/Plan
-
pain control AB
Steroids
DIscharge tomorrow
Assessment / Plan
Assessment / Plan
Patient is a 79-year-old female with past medical history significant for B-cell lymphoma of the head and neck as well as osteonecrosis of the jaw due to bisphosphonate therapy with increased pain and swelling.
Large necrotic appearing mass on the left jaw
Small tumor on the left chest wall
CVS: S1-S2 normal
Chest: CTA B/L
Abdomen: Soft, NT ,Bowel sounds present
Extremities: No edema
CT scan-severely enlarged large left neck mass consistent with patient's history of large B-cell lymphoma. New associated mild compression and moderate deviation of the airway to the right.
Associated surrounding inflammation and many hypodense foci within the mass probable necrosis. Infection cannot be excluded but less likely based on appearance. Clinical and lab correlation recommended. Additional nearby soft tissue masses some
enlarged some decrease in size but all felt to be same etiology. Nonvisualization of the left jugular vein suggesting compression or thrombosis. Prominent right pulmonary artery suggesting pulmonary hypertension. Subcentimeter hypodense right
thyroid lesion likely a benign nodule. Stable. Mild nonacute sinusitis. New. Multilevel degenerative disc disease of the cervical spine.
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
Increased pain and swelling likely secondary to cellulitis versus progression of malignancy
Started on Zosyn and dexamethasone gabapentin and tramadol
Patient states that her pain is controlled
Patient's cousin at bedside stated that morphine was called into the pharmacy by palliative care and they can pick it up tomorrow.
Patient and family wants to pursue hospice as there were no other options left per treating physicians at [facility]
# Hypertension-continue amlodipine and lisinopril as outpatient
# Hyperlipidemia
# Anxiety and depression
# History of gout-on allopurinol as outpatient
# Metastatic breast cancer
# GERD
# Arthritis
# DVT prophylaxis
# DNR
Discussed with patient's cousin at bedside
Discussed with hospice
Discussed with case management
Discussed with nursing
Patient wants to go home tomorrow. Family/friends are trying to help coordinate care Saturday and Saturday and her brother is coming in on Saturday they are going to charge. [facility] is planning [facility] to [facility] Saturday or Saturday this is
being arranged.
Total time spent today more than 50 minutes
Anticipated Discharge: Within 24 hours
Subjective/Interval History
-
Date of Service: July 01, 2025
Objective Data
-
Vital Signs:
Vital Signs
Temp Pulse Resp BP Pulse Ox
98.2 F 77 16 147/80 95
07/01/25 07:52 07/01/25 07:52 07/01/25 07:52 07/01/25 07:52 07/01/25 07:52
I&O
06/30/25 07/01/25 07/02/25
06:59 06:59 06:59
Intake Total 50 / 50
Balance 50 / 50
--- NOTE | 2025-07-01 14:25 | CHAP ---
Family reports that Ms. Lopes received Sacrament of the Sick from her own [employer] we[employer] tire cord on 06/30/25.
[2025-07-01 15:24] VITALS: BP 104/54
[2025-07-01] MEDS: ULTRAM 100 MG PO (17:05)
[2025-07-01] MEDS: NEURONTIN 600 MG PO (21:47)
[2025-07-01 23:22] VITALS: BP 123/59
[2025-07-02] MEDS: ZOSYN 50 IV ×2 (05:03→11:19)
[2025-07-02 07:18] VITALS: BP 116/64
[2025-07-02] MEDS: NORVASC 5 MG PO (08:32)
[2025-07-02] MEDS: NEURONTIN 300 MG PO ×2 (08:32→11:20)
[2025-07-02] MEDS: ZOVIRAX 400 MG PO (08:32)
[2025-07-02] MEDS: ZESTRIL 20 MG PO (08:33)
[2025-07-02] MEDS: ULTRAM 50 MG PO ×2 (08:33→11:20)
[2025-07-02] MEDS: DECADRON 4 MG IV (08:33)
[2025-07-02] MEDS: ZYLOPRIM 300 MG PO (08:33)
--- NOTE | 2025-07-02 14:51 | W.PN.HOSP.TC ---
Today's Communication/Plan
-
Discharge
Assessment / Plan
Assessment / Plan
Patient is a 79-year-old female with past medical history significant for B-cell lymphoma of the head and neck as well as osteonecrosis of the jaw due to bisphosphonate therapy with increased pain and swelling.
Seen earlier today. Late documentation
Large necrotic appearing mass on the left jaw
Small tumor on the left chest wall
CVS: S1-S2 normal
Chest: CTA B/L
Abdomen: Soft, NT ,Bowel sounds present
Extremities: No edema
CT scan-severely enlarged large left neck mass consistent with patient's history of large B-cell lymphoma. New associated mild compression and moderate deviation of the airway to the right.
Associated surrounding inflammation and many hypodense foci within the mass probable necrosis. Infection cannot be excluded but less likely based on appearance. Clinical and lab correlation recommended. Additional nearby soft tissue masses some
enlarged some decrease in size but all felt to be same etiology. Nonvisualization of the left jugular vein suggesting compression or thrombosis. Prominent right pulmonary artery suggesting pulmonary hypertension. Subcentimeter hypodense right
thyroid lesion likely a benign nodule. Stable. Mild nonacute sinusitis. New. Multilevel degenerative disc disease of the cervical spine.
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
Increased pain and swelling likely secondary to cellulitis versus progression of malignancy
Change antibiotics to liquid Augmentin
Patient states that her pain is controlled
PDMP reviewed. Patient has a prescription for morphine
Patient and family wants to pursue hospice as there were no other options left per treating physicians at [facility]
Hospice to meet with the patient at 4 PM today at discharge
# Hypertension-continue amlodipine and lisinopril as outpatient
# Hyperlipidemia
# Anxiety and depression
# History of gout-on allopurinol as outpatient
# Metastatic breast cancer
# GERD
# Arthritis
# DVT prophylaxis
# DNR
Discussed with nursing
Patient wants to go home on hospice
Spoke to [facility] and clarified medicines
More than 30 minutes spent in discharge including
Final examination of the patient
Summarizing hospital stay
Instructions for continuing care to all relevant caregivers
Preparation of discharge records, prescriptions, and referral forms
Anticipated Discharge: Today
Subjective/Interval History
-
Date of Service: July 02, 2025
Objective Data
-
Vital Signs:
Vital Signs
Temp Pulse Resp BP Pulse Ox
98.1 F 82 16 116/64 97
07/02/25 07:18 07/02/25 08:32 07/02/25 07:18 07/02/25 08:32 07/02/25 11:01
I&O
07/01/25 07/02/25 07/03/25
06:59 06:59 06:59
Intake Total 50 / 50 1640 / 1640
Balance 50 / 50 1640 / 1640
[2025-07-02 15:02] VITALS: BP 120/92
--- NOTE | 2025-07-02 16:34 | CM ---
Md enter order for discharge.
Spoke with [facility] she said she visited pt in room .
[facility] has all clinical they need.
Arrangements made she will be admitted to [facility] assisted living with hospice Saturday.
Today she is dc to home with family.
Plan Home with family
--- NOTE | 2025-07-02 17:08 | W.DS.TRANS ---
Addendum entered and electronically signed by Eulalia Gregorio MD 07/02/25 17:18:
Dictation- [id number]
Original Note:
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
-
Discharge Instructions:
Discharge Diagnosis/Procedures Cellulitis face
B cell lymphoma of the head and neck and
osteonecrosis of the jaw secondary to
bisphosphonate therapy
Hypertension
Gout
Breast cancer
Diet As tolerated
Activity As tolerated
Driving Restrictions As prior to admission
Other Services Hospice
Instructions:
Stand-Alone Forms:
Changes to Home Medications: Yes
Discharge Medications:
DC Medications w/original date entered in [facility]
lisinopril 20 mg tablet 20 mg PO DAILY Blood Pressure 08/15/11
acetaminophen 500 mg tablet (Tylenol Extra Strength) 1,000 mg PO BID@1200,2200 Pain 06/30/25
acetaminophen 500 mg tablet (Tylenol Extra Strength) 500 mg PO DAILY Pain 06/30/25
acyclovir 400 mg tablet 400 mg PO BID Infection 06/30/25
allopurinol 300 mg tablet 300 mg PO DAILY Gout 06/30/25
amlodipine 5 mg tablet 5 mg PO DAILY Blood Pressure 06/30/25
gabapentin 300 mg capsule 300 mg PO BID@0800,1200 Neurological Condition 06/30/25
gabapentin 300 mg capsule 600 mg PO HS Neurological Condition 06/30/25
sulfamethoxazole 200 mg-trimethoprim 40 mg/5 mL oral suspension 5 ml PO MOWEFR Infection 06/30/25
tramadol 50 mg tablet 50 mg PO BID@0800,1200 Pain 06/30/25
tramadol 50 mg tablet 100 mg PO QPM Pain 06/30/25
amoxicillin 250 mg-potassium clavulanate 62.5 mg/5 mL oral suspension (Augmentin) 17.2 ml PO Q12H Infection #150 mL 07/02/25
dexamethasone 6 mg tablet 6 mg PO DAILY swelling #10 tabs 07/02/25
polyethylene glycol 3350 17 gram/dose oral powder (Miralax) 17 g PO DAILY Constipation #238 grams 07/02/25
sennosides 8.8 mg/5 mL oral syrup (senna) 17.6 mg (10 mL) PO BID Constipation #250 mL 07/02/25
Home Medication Changes
Senokot, MiraLAX, Decadron, amoxicillin are new
Pending Results: No
== END 2025-07-02 15:20 | disposition home or self-care (01) | DRG 603 ==
LOC: 2 NORTH 21:38
PROVIDERS: Physician Assistant; ADMITTING PHYSICIAN Hospitalist; ATTENDING PHYSICIAN Hospitalist; EMERGENCY PHYSICIAN Student in an Organized Health Care Education/Training Program; FAMILY PHYSICIAN Internal Medicine
DX: L03.211 Cellulitis of face (principal); M87.180 Osteonecrosis due to drugs, jaw; C83.31 Diffuse large B-cell lymphoma, lymph nodes of head, face, and neck; T45.8X5A Adverse effect of other primarily systemic and hematological agents, initial encounter; I10 Essential (primary) hypertension; M10.9 Gout, unspecified; C50.919 Malignant neoplasm of unspecified site of unspecified female breast; F41.9 Anxiety disorder, unspecified; F32.A Depression, unspecified; E78.5 Hyperlipidemia, unspecified; D64.9 Anemia, unspecified; Z92.21 Personal history of antineoplastic chemotherapy; K58.9 Irritable bowel syndrome, unspecified; E03.9 Hypothyroidism, unspecified; K21.9 Gastro-esophageal reflux disease without esophagitis; Z51.5 Encounter for palliative care; Z66 Do not resuscitate; Z87.891 Personal history of nicotine dependence; Z96.641 Presence of right artificial hip joint; Z96.659 Presence of unspecified artificial knee joint
CPT/HCPCS: 70491; 80053; 81003; 81015; 83605; 85025; 87040; 87070; 87086; 87502; 87811; 96365; 96375; 99285; Q9967